=== PATIENT | female | born 1985 | race African-American/Black ===

== ENCOUNTER 2023-09-13 13:22 | Emergency (ER) | payer SELFPAY ==
[~2023-09-13] VITALS: Ht 154.9 cm; Wt 62.0 kg
[~2023-09-13 13:22] MED LIST: NORCO 325 MG-51 TAB PO; PRILOSEC 20MG20 MG PO
[2023-09-13 13:28] VITALS: TEMP 97.7
[2023-09-13] MEDS ORDERED: LR 1,000 ML IV ONE (14:00)
[2023-09-13] MEDS ORDERED: Ondansetron 4 MG/2 ML VIAL IV ONE (14:00)
[2023-09-13 14:06] LABS: BASO # 0.1 K/mm3 (0.0-0.2); BASO % 0.6 % (0.0-2.0); EOS # 0.2 K/mm3 (0.0-0.7); EOS % 1.9 % (0.0-4.0); GRAN # 7.1 K/mm3 (1.4-6.5); GRAN % 72.5 % (42.2-75.2); HEMATOCRIT 41.6 % (37.0-47.0); HEMOGLOBIN 14.4 g/dl (12.5-16.0); LYMPH # 1.7 K/mm3 (1.2-3.4); LYMPH % 17.3 % (20.0-51.0); MEAN CELL VOLUME 93 fl (80.0-100.0); MEAN CORPUSCULAR HEMOGLOBIN 32 pg (27-31); MEAN CORPUSCULAR HGB CONC 35 g/dl (33.0-37.0); MEAN PLATELET VOLUME 10.3 fl (7.4-10.4); MONO # 0.7 K/mm3 (0.1-0.6); MONO % 7.4 % (1.7-9.3); PLATELET COUNT 281 K/mm3 (130-400); RED BLOOD COUNT 4.49 M/mm3 (4.10-5.30); REDCELL DISTRIBUTION WIDTH-CV 13.2 % (11.5-14.5)
[2023-09-13 14:24] LABS: PH 6.5 (5.0-8.5); URINE APPEARANCE CLOUDY (CLEAR/HAZY); URINE BLOOD TRACE (NEGATIVE); URINE COLOR Dark Yellow (YELLOW); URINE GLUCOSE NEGATIVE (NEGATIVE); URINE KETONE 3+ (NEGATIVE); URINE NITRATE NEGATIVE (NEGATIVE); URINE PROTEIN(semi-quant) TRACE (NEGATIVE)
[2023-09-13 14:29] LABS: BILIRUBIN,TOTAL 0.6 mg/dL (0.2-1.2); CALCIUM 10.3 mg/dL (8.4-10.2); CREATININE, serum 0.7 mg/dL (0.57-1.11); POTASSIUM 3.9 mmol/L (3.5-4.5); TOTAL PROTEIN 8.6 gm/dL (6.2-8.1)
[2023-09-13 14:48] LABS: COLLECTION METHOD CLEAN CATCH
[2023-09-13] MEDS ORDERED: Calcium Carbonate 500 MG TAB PO ONE (15:00)
[2023-09-13] MEDS ORDERED: ZOFRAN ODT4 MG PO (15:32)
[2023-09-13] MEDS ORDERED: CEPHALEXIN250 M1 PO (15:32)
[2023-09-13 16:40] VITALS: BP 107/64; PULSE 76
[2023-09-17] MEDS ORDERED: REGLAN 10MG10 MG/TAB PO (15:47)
== END 2023-09-13 16:40 | disposition home or self-care (01) ==
LOC: COL.ER 13:22
PROVIDERS: Emergency Medicine
DX: O21.9 Vomiting of pregnancy, unspecified (principal); O09.521 Supervision of elderly multigravida, first trimester; Z3A.01 Less than 8 weeks gestation of pregnancy
CPT/HCPCS: J2405; J7120